=== PATIENT | female | born 1955 | race Caucasian/White ===

== ENCOUNTER 2021-11-05 11:32 | Emergency (ER) | payer OTHER, SELFPAY ==
[2021-11-05 11:42] VITALS: BP 131/68; PULSE 89; RESP 18; TEMP 36.2; O2SAT 100; BMI 21.9
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
[2021-11-05 13:25] VITALS: BP 134/64; PULSE 75; RESP 18; TEMP 36.8; O2SAT 99
[2021-11-05] MEDS: ACETAMINOPHEN 500 MG TABLET 1000 MG PO (13:40)
--- NOTE | 2021-11-05 13:58 | ED.NURSE ---
Blood drawn and sent to lab.
[2021-11-05 14:16] LABS: Lipase* 89 U/L (23-300)
== END 2021-11-05 15:19 | disposition home or self-care (01) ==
PROVIDERS: Emergency Provider Family Medicine; PCP Family Medicine
DX: M79.641 Pain in right hand (principal); R74.8 Abnormal levels of other serum enzymes; V89.2XXD Person injured in unspecified motor-vehicle accident, traffic, subsequent encounter
CPT/HCPCS: 36415; 73130; 83690; 87449; 99284; A9270

== ENCOUNTER 2022-01-26 09:00 | Outpatient (RCR) | payer OTHER, SELFPAY ==
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
== END 2022-09-30 08:11 | disposition home or self-care (01) ==
PROVIDERS: PCP Family Medicine; Visit Provider Family Medicine
DX: F07.81 Postconcussional syndrome (principal); H81.90 Unspecified disorder of vestibular function, unspecified ear; G44.86 Cervicogenic headache; M54.2 Cervicalgia; H81.10 Benign paroxysmal vertigo, unspecified ear; Z51.89 Encounter for other specified aftercare
CPT/HCPCS: 97161; 97165

== ENCOUNTER 2024-03-20 14:15 | Outpatient (CLI) | payer OTHER, SELFPAY | END 2024-03-20 14:16 | disposition home or self-care (01) | LOC: INJ CL 14:15 | PROVIDERS: PCP Family Medicine; Visit Provider Family Medicine | DX: M54.16 Radiculopathy, lumbar region (principal); M51.369 Other intervertebral disc degeneration, lumbar region without mention of lumbar back pain or lower extremity pain | CPT/HCPCS: 62323; J0702; Q9966 ==

== ENCOUNTER 2024-05-15 10:08 | Outpatient (CLI) | payer OTHER, SELFPAY | END 2024-05-15 10:09 | disposition home or self-care (01) | PROVIDERS: PCP Family Medicine; Visit Provider Family Medicine | DX: M47.816 Spondylosis without myelopathy or radiculopathy, lumbar region (principal) | CPT/HCPCS: 64493; 64494; J0702; Q9966 ==

== ENCOUNTER 2024-12-25 09:55 | Outpatient (CLI) | payer OTHER, SELFPAY | END 2024-12-25 09:56 | disposition home or self-care (01) | PROVIDERS: PCP Family Medicine; Visit Provider Family Medicine | DX: M54.16 Radiculopathy, lumbar region (principal); M51.360 Other intervertebral disc degeneration, lumbar region with discogenic back pain only | CPT/HCPCS: 62323; J0702; Q9966 ==